=== PATIENT | female | born 1955 | race Caucasian/White ===

== ENCOUNTER 2019-01-09 18:12 | Observation (INO) | payer SELFPAY ==
[~2019-01-09] VITALS: Ht 154.9 cm; Wt 82.7 kg
[~2019-01-09 18:12] MED LIST: SULF500T3 PO
[2019-01-09 18:15] VITALS: BP 163/98
--- OUTSIDE RECORDS SUMMARY | 2019-01-09 18:18 | XMS REPORT | Continuity of Care Document ---
Author Organization Unknown Address Unknown Allergies Active Description Code Type Severity Reaction Onset Reported/Identified Relationship to Patient Clinical Status Yes cefazolin Drug Allergy N/A N/A 02/02/2013 Yes Bactrim DS 800-160 mg tablet Drug Allergy N/A N/A 05/13/2013 Yes Bactrim Drug Allergy N/A N/A 05/13/2013 Yes Cephalexin Drug Allergy N/A N/A 05/13/2013 Medications There is no data. 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 06/24/2012 578.1 black or tarry stools (melena) 06/24/2012 338.29 CHRONIC PAIN 06/24/2012 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 06/24/2012 578.1 black or tarry stools (melena) 06/24/2012 338.29 CHRONIC PAIN 06/24/2012 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 06/24/2012 578.1 black or tarry stools (melena) 06/24/2012 338.29 CHRONIC PAIN 06/24/2012 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 06/24/2012 578.1 black or tarry stools (melena) 06/24/2012 338.29 CHRONIC PAIN 06/24/2012 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 06/24/2012 578.1 black or tarry stools (melena) 06/24/2012 BERNADINE BENSON DO 338.29 CHRONIC PAIN 06/24/2012 BERNADINE BENSON DO 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 06/24/2012 BERNADINE BENSON DO 578.1 black or tarry stools (melena) 06/24/2012 RUDY AGUAYO APRN 338.29 CHRONIC PAIN 06/24/2012 RUDY AGUAYO APRN 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 06/24/2012 RUDY AGUAYO APRN 578.1 black or tarry stools (melena) 08/30/2012 786.2 cough 08/30/2012 786.2 cough 08/30/2012 786.2 cough 08/30/2012 786.2 cough 08/30/2012 786.2 cough 08/30/2012 786.2 cough 08/30/2012 BERNADINE BENSON DO 786.2 cough 08/30/2012 RUDY AGUAYO APRN 786.2 cough 09/11/2012 465.9 UPPER RESPIRATORY INFECTION 09/11/2012 465.9 UPPER RESPIRATORY INFECTION 09/11/2012 465.9 UPPER RESPIRATORY INFECTION 09/11/2012 465.9 UPPER RESPIRATORY INFECTION 09/11/2012 465.9 UPPER RESPIRATORY INFECTION 09/11/2012 BERNADINE BENSON DO 465.9 UPPER RESPIRATORY INFECTION 09/11/2012 RUDY AGUAYO APRN 465.9 UPPER RESPIRATORY INFECTION 03/03/2013 278.02 OVERWEIGHT 03/03/2013 BERNADINE BENSON DO 278.02 OVERWEIGHT 03/03/2013 RUDY AGUAYO APRN 278.02 OVERWEIGHT 05/13/2013 BERNADINE BENSON DO 709.9 SKIN LESIONS 05/13/2013 RUDY AGUAYO APRN 709.9 SKIN LESIONS Procedures Code Description [place] [address] ROUTINE VENIPUNCTURE 06/24/2012 07890 A1C (IN-HOUSE) 06/24/2012 36607 ESR/SED RATE 06/24/2012 08026 CBC 06/24/2012 29224 CMP 06/24/2012 37354 MAGNESIUM 06/24/2012 [id number] GFR CALC (RESULT ONLY) 06/24/2012 99355 CRP 06/25/2012 18597 TSH 06/25/2012 42078 RA FACTOR 06/25/2012 ANAANA LUIS ANALYZER (SCREEN) 06/25/2012 Eddie More 06/28/[address] ABDOMEN AND PELVIS W/CONTRAST 07/26/2012 68411 INFLUENZA A & B (IN-HOUSE) 08/30/2012 81886 ROUTINE VENIPUNCTURE 02/22/2014 [id number] GFR CALC (RESULT ONLY) 02/22/2014 03810 CMP 02/22/2014 01009 LIPID PANEL 02/22/2014 99609 CBC 02/22/2014 34218 TSH 02/22/2014 Results There is no data. Encounters ACCT No. Visit Date/Time Discharge Status Pt. Type Provider Facility Loc./Unit Complaint [id number] 02/22/2014 10:49:00 02/22/2014 23:59:59 CLS Outpatient RUDY AGUAYO APRN [id number] 05/13/2013 09:42:00 05/13/2013 23:59:59 CLS Outpatient BERNADINE BENSON DO [id number] 10/11/2012 15:54:00 10/11/2012 23:59:59 CLS Outpatient [id number] 09/11/2012 09:58:00 09/11/2012 23:59:59 CLS Outpatient [id number] 08/30/2012 13:11:00 08/30/2012 23:59:59 CLS Outpatient [id number] 06/24/2012 12:57:00 06/24/2012 23:59:59 CLS Outpatient BERNADINE BENSON DO [id number] 03/03/2013 10:57:00 Document Registration [id number] 02/02/2013 16:14:00 Document Registration [id number] 10/28/2012 05:41:00 Document Registration
--- OUTSIDE RECORDS SUMMARY | 2019-01-09 18:18 | XMS REPORT ---
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 06574203 Problem Acute upper respiratory infections of unspecified site 465.9 Active 81887218 ALLERGIES No Information ENCOUNTERS Encounter Location Date Diagnosis [facility] [address] [place] [address] Apr, [facility] [address] [place] [address] Mar, Sinusitis 473.9 and Cough 786.2 [facility] [address] [place] [address] Nov, [facility] [address] [address] Nov, [facility] [id number] [place] [address] Jun, [facility] [address] [place] [address] Jun, [facility] [id number] [place] [address] Feb, [facility] [address] [address] Feb, [facility] [id number] [place] [address] Feb, [facility] [address] [id number] [place] [address] Feb, [facility] [place] [facility] [address] [id number] [place] [address] Feb, [facility] [address] [id number] [place] [address] Feb, [facility] [place] [facility] [address] [id number] [place] [address] December, [facility] [address] [id number] [place] [address] December, [facility] [address] [id number] [place] [address] Jul, [facility] [address] [facility] [id number] [place] [address] Jul, [facility] [address] [id number] [place] [address] Apr, [facility] [address] [id number] [place] [address] Apr, [facility] [place] [facility] [address] [facility] [id number] [place] [address] Apr, [facility] [address] [id number] [place] [address] Feb, [facility] [place] [facility] [address] [id number], [place] [address] Jan, [facility] [place] [facility] [address] [id number] [place] [address] Jan, [facility] [place] [facility] [address] [facility] [id number] [place] [address] Sep, [facility] [place] [facility] [address] [facility] [id number], [place] [address] Aug, [facility] [place] [facility] [address] [facility] [id number], [place] [address] Aug, [facility] [address] [address] Aug, [facility] [address] [facility] [id number], [place] [address] Jul, [facility] [address] [facility] [id number], [place] [address] Jul, [facility] [address] [facility] [id number], [place] [address] Jun, [facility] [address] [place] [address] Jun, [facility] [address], [place] [address] Jun, [facility] [address], [place] [address] Jun, [facility] [address], [place] [address] Jun, [facility] [address], [place] [address] Jun, [facility] [address], [place] [address] Jun, [facility] [address], [place] [address] Jun, [facility] [id number] [address] Jun, IMMUNIZATIONS No Known Immunizations SOCIAL HISTORY Never Assessed [place] [place] VITAL SIGNS MEDICATIONS Unknown Medications RESULTS No Results PROCEDURES No Known procedures INSTRUCTIONS MEDICATIONS ADMINISTERED No Known Medications MEDICAL (GENERAL) HISTORY Type Description Date Surgical History tonsillectomy Surgical History colostomy
--- OUTSIDE RECORDS SUMMARY | 2019-01-09 18:18 | XMS REPORT ---
Author Author Migration, Doctor Organization 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 72264143 Problem Acute upper respiratory infections of unspecified site 465.9 Active 07249422 ALLERGIES No Information ENCOUNTERS Encounter Location Date Diagnosis [facility] [address] [place] [address] Apr, [facility] [address] [place] [address] Mar, Sinusitis 473.9 and Cough 786.2 [facility] [address] [place] [address] Nov, [facility] [address] [address] Nov, [facility] [id number] [place] [address] Jun, [facility] [address] [place] [address] Jun, [facility] [id number] [place] [address] Feb, [facility] [address] [address] Feb, [facility] [id number] [place] [address] Feb, [facility] [address] [id number] [place] [address] Feb, [facility] [place] [facility] [address] [id number] [place] [address] Feb, [facility] [address] [id number] [place] [address] Feb, [facility] [place] [facility] [address] [id number] [place] [address] December, [facility] [address] [id number] [place] [address] December, [facility] [address] [id number] [place] [address] Jul, [facility] [address] [facility] [id number] [place] [address] Jul, [facility] [address] [id number] [place] [address] Apr, [facility] [address] [id number] [place] [address] Apr, [facility] [place] [facility] [address] [facility] [id number] [place] [address] Apr, [facility] [address] [id number] [place] [address] Feb, [facility] [place] [facility] [address] [id number] [address] Jan, [facility] [place] [facility] [address] [id number] [place] [address] Jan, [facility] [place] [facility] [address] [facility] [id number] [place] [address] Sep, [facility] [place] [facility] [address] [facility] [id number] [place] [address] Aug, [facility] [place] [facility] [address] [facility] [id number] [place] [address] Aug, [facility] [address] [address] Aug, [facility] [address] [facility] [id number] [place] [address] Jul, [facility] [address] [facility] [id number] [place] [address] Jul, [facility] [address] [facility] [id number] [place] [address] Jun, [facility] [address] [place] [address] Jun, [facility] [address] [address] Jun, [facility] [address] [address] Jun, [facility] [address] [address] Jun, [facility] [address] [address] Jun, [facility] [address] [address] Jun, [facility] [address] [address] Jun, [facility] [id number] [address] Jun, IMMUNIZATIONS No Known Immunizations SOCIAL HISTORY Never Assessed REASON FOR VISIT [facility] [place] PLAN OF CARE VITAL SIGNS MEDICATIONS Unknown Medications RESULTS No Results PROCEDURES No Known procedures INSTRUCTIONS MEDICATIONS ADMINISTERED No Known Medications MEDICAL (GENERAL) HISTORY Type Description Date Surgical History tonsillectomy Surgical History colostomy
--- OUTSIDE RECORDS SUMMARY | 2019-01-09 18:18 | XMS REPORT ---
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
--- NOTE | 2019-01-09 18:34 | Diagnostic Imaging Report ---
PROCEDURE: CT head without contrast. TECHNIQUE: Multiple contiguous axial images were obtained through the brain without the use of intravenous contrast. Auto Exposure Controls were utilized during the CT exam to meet ALARA standards for radiation dose reduction. INDICATION: Slurred speech and facial droop. FINDINGS: The ventricles and sulci are within normal limits. There is no hydrocephalus or cerebral edema. There is no midline shift or mass effect. There is no intracranial mass, hemorrhage, or extra-axial fluid collection. The visualized paranasal sinuses and mastoid air cells are clear. There are no regional areas of decreased attenuation appreciated to suggest an acute CVA. IMPRESSION: No acute intracranial abnormality. Dictated by: Dictated on workstation # [id number]
[2019-01-09 18:38] LABS: BASOPHILS % (AUTO) 1 % (0-10); EOSINOPHILS % (AUTO) 2 % (0-10); HEMATOCRIT 41 % (35-52); HEMOGLOBIN 13.6 G/DL (11.5-16.0); LYMPHOCYTES % (AUTO) 42 % (12-44); MEAN CORPUSCULAR HEMOGLOBIN 30 PG (25-34); MEAN CORPUSCULAR HGB CONC 34 G/DL (32-36); MEAN CORPUSCULAR VOLUME 90 FL (80-99); MEAN PLATELET VOLUME 9.2 FL (7.4-10.4); MONOCYTES % (AUTO) 6 % (0-12); NEUTROPHILS % (AUTO) 50 % (42-75); PLATELET COUNT 254 10^3/uL (130-400); RED CELL DISTRIBUTION WIDTH 12.2 % (10.0-14.5); WHITE BLOOD COUNT 7.6 10^3/uL (4.3-11.0)
[2019-01-09 18:39] LABS: EOSINOPHILS # (AUTO) 0.1 10^3/uL (0.0-0.3); LYMPHOCYTES # (AUTO) 3.2 X 10^3 (1.0-4.0); MONOCYTES # (AUTO) 0.4 X 10^3 (0.0-1.0); NEUTROPHILS # (AUTO) 3.8 X 10^3 (1.8-7.8)
--- NOTE | 2019-01-09 18:43 | Diagnostic Imaging Report ---
INDICATION: Slurred speech and facial droop. COMPARISON: No prior examination is available for comparison. EXAMINATION: Single view of the chest was obtained. FINDINGS: The heart size, mediastinal configuration, and pulmonary vascularity are within normal limits. There is no pleural effusion, pneumothorax, or pneumonia. The osseous structures are unremarkable. IMPRESSION: No acute cardiopulmonary abnormality. Dictated by: Dictated on workstation # [id number]
[2019-01-09 18:44] LABS: PROTHROMBIN TIME PATIENT 13.4 SEC (12.2-14.7)
--- NOTE | 2019-01-09 18:51 | ED Neurological Problem ---
General Chief Complaint: Neuro-Stroke Like Symptoms Stated Complaint: POSS STROKE Source: patient, family History of Present Illness Date Seen by Provider: January 09, 2019 Time Seen by Provider: 18:35 This is a 63-year-old female here with her granddaughter for right-sided facial weakness, slurred speech, left arm weakness, onset upon waking from a nap at about 10:30 AM this morning. She had gone to sleep at 9:30 AM feeling approximately at her baseline. She's never had a stroke or heart attack. She says that she takes no medications on a regular basis. 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 Asked about any pain she admits to some right shoulder pain earlier in the day, she noticed it somewhat when lying down for CT scan as well, but states it has resolved and was not a reason for her visit today. Allergies and Home Medications Allergies Coded Allergies: cephalexin (Verified Allergy, Unknown, 01/09/19) sulfamethoxazole (Verified Allergy, Unknown, 01/09/19) trimethoprim (Verified Allergy, Unknown, 01/09/19) Home Medications Sulfasalazine 500 Mg Tablet.dr, 500 MG PO QID, (Reported) Patient Home Medication List Home Medication List Reviewed: Yes Review of Systems Review of Systems Constitutional: no symptoms reported Eyes: No Symptoms Reported Ears, Nose, Mouth, Throat: no symptoms reported Respiratory: no symptoms reported Cardiovascular: no symptoms reported Gastrointestinal: no symptoms reported Genitourinary: no symptoms reported Musculoskeletal: no symptoms reported Skin: no symptoms reported Psychiatric/Neurological: See HPI Endocrine: No Symptoms Reported Hematologic/Lymphatic: No Symptoms Reported Past Liybvvj-Utwcuk-Iubkjf Hx Past Med/Social Hx: Reviewed Nursing Past Med/Soc Hx Physical Exam Vital Signs Vital Signs - First Documented 01/09/19 01/09/19 18:15 18:52 Temp 98.3 Pulse 83 Resp 25 B/P (MAP) 163/98 Pulse Ox 98 O2 Delivery Room Air Capillary Refill : Height, Weight, BMI Height: '" Weight: lbs. oz. kg; BMI Method: General Appearance: no apparent distress (awake but appears mildly drowsy) HEENT: PERRL/EOMI Neck: supple; No carotid bruit Respiratory: lungs clear Cardiovascular: normal peripheral pulses, regular rate, rhythm Gastrointestinal: non tender, soft, other (left lower quadrant ostomy in place with brown stool in the bag) Back: other (mild tenderness with hypertonic musculature in the right trapezius ridge) Neurologic/Psychiatric: other (there is right upper and lower facial weakness. Cranial nerves are otherwise intact. Mild weakness in the left arm noted on finger to nose testing however there is no drift. No drift in the lower extremities. Sensation to light touch is intact symmetrically. All 4 visual quadrants are intact. There is mild dysarthria.) Crainal Nerves: normal hearing; No normal speech; PERRL; No abnormal eye position, No abnormal gag reflex, No tongue deviation to R, No tongue deviation to L Coordination/Gait: normal finger to nose Skin: warm/dry Stroke NIH Stroke Scale Assessment Select: Post CT Level of Consciousness: 0=Alert (0), Level of Consciousness- Questions: 0=Answers both month/age (0), LOC Commands: 0=Performs both tasks (0), Gaze: Normal (0), Visual Guillen: 0=No visual loss (0), Facial Movement (Facial Paresis): 2=Partial paralysis (2), Motor Function-Arms Right: 0=No drift (0), Motor Function-Arms Left: 0=No drift (0), Motor Function-Legs Right: 0=No drift (0), Motor Function-Legs Left: 0=No drift (0), Limb Ataxia: 0=Absent (0), Sensory: 0=Normal:no loss (0), Best Language: 0=No aphasia (0), Dysarthria: 1=Mild to moderate loss (1), Extinction & Inattention: 0=No abnormality (0), Total: 3 Progress/Results/Core Measures Results/Orders Lab Results Laboratory Tests Test 01/09/19 18:15 01/09/19 18:56 01/09/19 19:37 Range/Units White Blood Count 7.6 4.3-11.0 10^3/uL Red Blood Count 4.52 4.35-5.85 10^6/uL Hemoglobin 13.6 11.5-16.0 G/DL Hematocrit 41 35-52 % Mean Corpuscular Volume 90 80-99 FL Mean Corpuscular Hemoglobin 30 25-34 PG Mean Corpuscular Hemoglobin Concent 34 32-36 G/DL Red Cell Distribution Width 12.2 10.0-14.5 % Platelet Count 254 130-400 10^3/uL Mean Platelet Volume 9.2 7.4-10.4 FL Neutrophils (%) (Auto) 50 42-75 % Lymphocytes (%) (Auto) 42 12-44 % Monocytes (%) (Auto) 6 0-12 % Eosinophils (%) (Auto) 2 0-10 % Basophils (%) (Auto) 1 0-10 % Neutrophils # (Auto) 3.8 1.8-7.8 X 10^3 Lymphocytes # (Auto) 3.2 1.0-4.0 X 10^3 Monocytes # (Auto) 0.4 0.0-1.0 X 10^3 Eosinophils # (Auto) 0.1 0.0-0.3 10^3/uL Basophils # (Auto) 0.0 0.0-0.1 10^3/uL Prothrombin Time 13.4 12.2-14.7 SEC INR Comment 1.0 0.8-1.4 Activated Partial Thromboplast Time 31 24-35 SEC Sodium Level 141 135-145 MMOL/L Potassium Level 3.8 3.6-5.0 MMOL/L Chloride Level 104 98-107 MMOL/L Carbon Dioxide Level 24 21-32 MMOL/L Anion Gap 13 5-14 MMOL/L Blood Urea Nitrogen 13 7-18 MG/DL Creatinine 0.78 0.60-1.30 MG/DL Estimat Glomerular Filtration Rate > 60 BUN/Creatinine Ratio 17 Glucose Level 104 70-105 MG/DL Calcium Level 10.6 H 8.5-10.1 MG/DL Corrected Calcium 10.3 H 8.5-10.1 MG/DL Total Bilirubin 0.5 0.1-1.0 MG/DL Aspartate Amino Transf (AST/SGOT) 21 5-34 U/L Alanine Aminotransferase (ALT/SGPT) 19 0-55 U/L Alkaline Phosphatase 90 40-136 U/L Total Protein 7.5 6.4-8.2 GM/DL Albumin 4.4 3.2-4.5 GM/DL Glucometer 102 70-110 MG/DL Urine Color YELLOW Urine Clarity CLOUDY Urine pH 5.5 5-9 Urine Specific [place] 1.025 H 1.016-1.022 Urine Protein NEGATIVE NEGATIVE Urine Glucose (UA) NEGATIVE NEGATIVE Urine Ketones 1+ H NEGATIVE Urine Nitrite NEGATIVE NEGATIVE Urine Bilirubin NEHG NEGATIVE Urine Urobilinogen 0.2 NORMAL MG/DL Urine Leukocyte Esterase 2+ H NEGATIVE Urine RBC (Auto) 2+ H NEGATIVE Urine RBC 5-10 H /HPF Urine WBC >100 H /HPF Urine Squamous Epithelial Cells 5-10 /HPF Urine Renal Epithelial Cells 0-2 /HPF Urine Crystals NONE /LPF Urine Bacteria NEGATIVE /HPF Urine Casts PRESENT /LPF Urine Hyaline Casts 2-5 H /LPF Urine Mucus LARGE H /LPF Urine Culture Indicated YES My Orders Orders - IVANA MARTE DO Ct Head Wo (01/09/19 18:17) Cbc With Automated Diff (01/09/19 18:24) Protime With Inr (01/09/19 18:24) Partial Thromboplastin Time (01/09/19 18:24) Comprehensive Metabolic Panel (01/09/19 18:24) Ua Culture If Indicated (01/09/19 18:24) Chest 1 View Ap/Pa Only (01/09/19 18:24) Ekg Tracing (01/09/19 18:24) Nothing By Mouth (01/10/19 Breakfast) Accucheck Stat ONCE (01/09/19 18:24) Ed Iv/Invasive Line Start (01/09/19 18:24) Ed Iv/Invasive Line Start (01/09/19 18:24) Vital Signs Stroke Patient Q15M (01/09/19 18:24) O2 (01/09/19 18:24) Intake & Output 06,14,22 (01/09/19 18:24) Monitor-Rhythm Ecg Trace Only (01/09/19 18:24) Dysphagia Screening Tool (01/09/19 18:24) Aspirin Chewable Tablet (Baby Aspirin Ch (01/09/19 19:00) Urine Culture (01/09/19 19:37) Medications Given in ED Current Medications Medications Dose Ordered Sig/Umberto Route Start Time Stop Time Status Last Admin Dose Admin Aspirin 324 mg ONCE ONCE PO 01/09/19 19:00 01/09/19 19:01 DC 01/09/19 19:10 324 MG Vital Signs/I&O 01/09/19 01/09/19 01/09/19 18:15 18:52 19:54 Temp 98.3 99.1 Pulse 83 83 78 Resp 25 25 22 B/P (MAP) 163/98 163/98 (119) 129/82 (98) Pulse Ox 98 98 97 O2 Delivery Room Air Room Air Progress Progress Note : Progress Note Patient presents with right facial weakness and left arm weakness, last known no rmal at 9:30 AM, not a TPA candidate. The right facial weakness may be secondary to her history of Beltran palsy, with a stroke possibly causing the left arm weakness however the arm weakness is only noted when she is lifting her arm up her finger to nose testing, there is no drift when she has both of her arms up. She is slightly drowsy, considering the differential for altered mental status stroke is obviously a consideration as is acute coronary syndrome, infection such as urinary tract infection or pneumonia, electrolyte abnormality, medication effect, intoxication, trauma, seizure/postictal paralysis. She did note some right trapezius pain/tenderness on ROS but this is reproducible on palpation and has actually resolved, no carotid bruit, no hx or evidence of trauma, very unlikely her symptoms are related to a cervical arterial dissection or meningitis. We will give aspirin if head CT is read as negative for hemorrhage. We will check labs, urinalysis, chest x-ray. ECG only has nonspecific T-wave changes in several leads. We will admit for further monitoring and care. EKG : Comment 1842: Sinus rhythm rate of 73. T-wave inversion in 3, nonspecific T-wave flattening in aVF, V2 and V3. Departure Impression Primary Impression: Left arm weakness Additional Impressions: Weakness on right side of face Drowsiness Disposition: ADMITTED INPATIENT Condition: Stable Transfer Time Spoke to Accepting Phy: 19:[address] Paredes at [facility] Method of Transfer: EMS IVANA MARTE DO January 09, 2019 18:51
[2019-01-09 18:56] LABS: CHLORIDE 104 MMOL/L (98-107); POTASSIUM 3.8 MMOL/L (3.6-5.0); SODIUM 141 MMOL/L (135-145)
[2019-01-09 18:57] LABS: BUN/CREATININE RATIO 17; CARBON DIOXIDE 24 MMOL/L (21-32); CREATININE SERUM 0.78 MG/DL (0.60-1.30); GFR ESTIMATED > 60
[2019-01-09 18:58] LABS: ALKALINE PHOSPHATASE 90 U/L (40-136); BILIRUBIN,TOTAL 0.5 MG/DL (0.1-1.0); CALCIUM 10.6 MG/DL (8.5-10.1); GLUCOSE 104 MG/DL (70-105)
[2019-01-09 18:59] LABS: ALANINE AMINOTRANSFERASE 19 U/L (0-55); ALBUMIN 4.4 GM/DL (3.2-4.5); TOTAL PROTEIN 7.5 GM/DL (6.4-8.2)
[2019-01-09] MEDS ORDERED: ASPIRIN 81 MG CHEW (CHILDREN'S ASA) PO ONE (19:00)
--- NOTE | 2019-01-09 19:22 | NUR ---
Pt signed patient consent to "medically indicated" transfer form
[2019-01-09 19:54] VITALS: BP 129/82
[2019-01-09 19:54] LABS: BILIRUBIN,URINE NEHG (NEGATIVE); CLARITY,URINE CLOUDY; COLOR,URINE YELLOW; GLUCOSE, URINE (UA) NEGATIVE (NEGATIVE); KETONES,URINE 1+ (NEGATIVE); LEUKOCYTE ESTERASE ,URINE 2+ (NEGATIVE); NITRITE,URINE NEGATIVE (NEGATIVE); PH,URINE 5.5 (5-9); PROTEIN,URINE NEGATIVE (NEGATIVE); UROBILINOGEN,URINE 0.2 MG/DL (NORMAL)
[2019-01-09 20:02] LABS: BACTERIA,URINE NEGATIVE /HPF; RENAL EPITHELIAL CELLS,URINE 0-2 /HPF; WBC,URINE >100 /HPF
--- NOTE | 2019-01-09 20:25 | NUR ---
Report was given to ANGÉLICA Kaur at this time. Care was tranferred.
--- NOTE | 2019-01-09 20:30 | NUR ---
EMS left with patient at this time. In route to [place] [facility].
--- NOTE | 2019-01-09 20:41 | NUR ---
REPORT FROM SAE METCALF FROM [facility] AT THIS TIME. THIS RN WILL ASSUME CARE OF THIS PATIENT WHEN SHE ARRIVES TO THIS FLOOR VIA [facility].
--- OUTSIDE RECORDS SUMMARY | 2019-01-09 20:56 | XMS REPORT | Continuity of Care Document ---
[...] Procedures Code Description [place] [address] ROUTINE VENIPUNCTURE 06/24/2012 89354 A1C (IN-HOUSE) 06/24/2012 71372 ESR/SED RATE 06/24/2012 67346 CBC 06/24/2012 17732 CMP 06/24/2012 56819 MAGNESIUM 06/24/2012 [id number] GFR CALC (RESULT ONLY) 06/24/2012 87743 CRP 06/25/2012 41655 TSH 06/25/2012 81846 RA FACTOR 06/25/2012 ANAANA LUIS ANALYZER (SCREEN) 06/25/2012 Eddie More 06/28/[address] ABDOMEN AND PELVIS W/CONTRAST 07/26/2012 03024 INFLUENZA A & B (IN-HOUSE) 08/30/2012 03179 ROUTINE VENIPUNCTURE 02/22/2014 [id number] GFR CALC (RESULT ONLY) 02/22/2014 05665 CMP 02/22/2014 01781 LIPID PANEL 02/22/2014 18506 CBC 02/22/2014 62530 TSH 02/22/2014 Results There is no data. Encounters ACCT No. Visit Date/Time Discharge Status Pt. Type Provider Facility Loc./Unit Complaint [id number] 02/22/2014 10:49:00 02/22/2014 23:59:59 CLS Outpatient RUDY AGUAYO APRN [id number] 05/13/2013 09:42:00 05/13/2013 23:59:59 CLS Outpatient BERNADINE BENSON DO [id number] 10/11/2012 15:54:00 10/11/2012 23:59:59 CLS Outpatient [id number] 09/11/2012 09:58:00 09/11/2012 23:59:59 CLS Outpatient [id number] 08/30/2012 13:11:00 08/30/2012 23:59:59 CLS Outpatient [id number] 06/24/2012 12:57:00 06/24/2012 23:59:59 CLS Outpatient BERNADINE BENSON DO [id number] 03/03/2013 10:57:00 Document Registration [id number] 02/02/2013 16:14:00 Document Registration [id number] 10/28/2012 05:41:00 Document Registration
[2019-01-09 21:23] VITALS: BP 160/77
[2019-01-09 21:24] VITALS: BP 160/77
[2019-01-09] MEDS ORDERED: NS IV 1000 ML 1,000 ML IV SCH (21:30)
[2019-01-09] MEDS: 1/2 NS IV SOLUTION 1,000 ML IV SCH (22:15)
[2019-01-09] MEDS ORDERED: ACETAMINOPHEN 325 MG TABLET PO PRN (22:45)
[2019-01-09 23:23] VITALS: BP 134/76
[2019-01-10 03:30] LABS: BASOPHILS % (AUTO) 0 % (0-10); EOSINOPHILS # (AUTO) 0.1 10^3/uL (0.0-0.3); EOSINOPHILS % (AUTO) 2 % (0-10); HEMATOCRIT 37 % (35-52); HEMOGLOBIN 12.3 G/DL (11.5-16.0); LYMPHOCYTES # (AUTO) 2.4 X 10^3 (1.0-4.0); LYMPHOCYTES % (AUTO) 41 % (12-44); MEAN CORPUSCULAR HEMOGLOBIN 30 PG (25-34); MEAN CORPUSCULAR HGB CONC 34 G/DL (32-36); MEAN CORPUSCULAR VOLUME 89 FL (80-99); MEAN PLATELET VOLUME 9.3 FL (7.4-10.4); MONOCYTES # (AUTO) 0.4 X 10^3 (0.0-1.0); MONOCYTES % (AUTO) 7 % (0-12); NEUTROPHILS % (AUTO) 50 % (42-75); PLATELET COUNT 207 10^3/uL (130-400); RED CELL DISTRIBUTION WIDTH 12.3 % (10.0-14.5); WHITE BLOOD COUNT 5.9 10^3/uL (4.3-11.0)
[2019-01-10 03:49] LABS: ALANINE AMINOTRANSFERASE 19 U/L (0-55); ALBUMIN 3.6 GM/DL (3.2-4.5); ALKALINE PHOSPHATASE 76 U/L (40-136); BILIRUBIN,TOTAL 0.4 MG/DL (0.1-1.0); BUN/CREATININE RATIO 14; CALCIUM 9.4 MG/DL (8.5-10.1); CARBON DIOXIDE 22 MMOL/L (21-32); CHLORIDE 107 MMOL/L (98-107); CHOLESTEROL 217 MG/DL (< 200); GFR ESTIMATED > 60; GLUCOSE 85 MG/DL (70-105); HDL CHOLESTEROL 44 MG/DL (40-60); POTASSIUM 3.5 MMOL/L (3.6-5.0); SODIUM 140 MMOL/L (135-145); TOTAL PROTEIN 6.3 GM/DL (6.4-8.2); TRIGLYCERIDES 126 MG/DL (<150); VLDL CHOLESTEROL 25 MG/DL (5-40)
[2019-01-10 03:52] VITALS: BP 128/75
[2019-01-10] MEDS: 1/2 NS IV SOLUTION 1,000 ML IV SCH (04:53)
[2019-01-10] MEDS ORDERED: CATHETER FLUSH 10 ML SYR IV PRN (07:45)
[2019-01-10 08:00] VITALS: BP 148/68
[2019-01-10 12:00] VITALS: BP 145/70
--- NOTE | 2019-01-10 13:09 | Diagnostic Imaging Report ---
PROCEDURE: MR angiography of the brain without the use of contrast. TECHNIQUE: 3D [id number] non contrast enhanced MR angiography of the head was performed. A source data was reformatted into rotating MIP projections. INDICATION: Stroke. COMPARISON: MRI brain without contrast 01/10/2019. CT head without contrast 01/09/2019. FINDINGS: The basilar, intracranial internal carotid, vertebral, anterior cerebral, middle cerebral and posterior cerebral arteries are widely patent without evidence of aneurysm. The anterior and left posterior communicating artery are patent. IMPRESSION: No high-grade narrowing or aneurysm involving the major intracranial arteries. Dictated by: Dictated on workstation # [id number]
--- NOTE | 2019-01-10 13:11 | Diagnostic Imaging Report ---
PROCEDURE: MR imaging of the brain without contrast. TECHNIQUE: Multiplanar, multisequence MR imaging of the brain was performed without contrast. INDICATION: Slurred speech. Right facial numbness. Difficulty walking. COMPARISON: CT head without contrast 01/09/2019. FINDINGS: There is a small region of restricted water diffusion in the left lentiform nucleus including the caudate tail. This measures up 1.3 cm. Mild additional nonspecific T2 hyperintensities in the supratentorial white matter. No hemosiderin deposition. Normal morphology including the major midline structures, sella, posterior fossa and cerebellar pontine angle. No hydrocephalus or extra-axial fluid collections. Normal intracranial flow voids. The orbits are unremarkable. The paranasal sinuses and mastoids are clear. Normal bone marrow signal. IMPRESSION: Small acute to subacute infarct in the right basal ganglia. MRI of the brain is otherwise age-appropriate. Dictated by: Dictated on workstation # [id number]
--- NOTE | 2019-01-10 13:33 | Physical Therapy Evaluation ---
PT Evaluation-General Medical Diagnosis Admission Date January 09, 2019 at 20:20 Medical Diagnosis: left arm weakness Onset Date: January 09, 2019 Therapy Diagnosis Therapy Diagnosis: impaired mobility, strength, endurance Height/Weight Height (Feet): 5 Height (Inches): 1.00 Weight (Pounds): 182 Weight (Ounces): 6.0 Precautions Precautions/Isolations: Standard Precautions Weight Bear Status Right Lower Extremity: Right Weight Bearing/Tolerated Left Lower Extremity: Left Weight Bearing/Tolerated Referral Physician: Cheryl Paredes MD Reason for Referral: Evaluation/Treatment Medical History Additional Medical History colostomy, Crohn's Reviewed History: Yes Social History Home: Single Level Current Living Status: Children Entry Into Home: Ramp Other family member states she will be there to help if needed. Prior/Core FIM Prior Level of Function Therapy Code Descriptions/Definitions Functional [place] Measure: 0=Not Assessed/NA 4=Minimal Assistance 1=Total Assistance 5=Supervision or Setup 2=Maximal Assistance 6=Modified [place] 3=Moderate Assistance 7=Complete [place] Therapy Quality Codes: 6 Independent with activity with or without an assistive device 5 Patient requires set up or clean up by helper. Patient completes activity by themselves 4 Supervision or touching assist (CGA). [place] provide cues , steadying assist 3 The helper provides less than half the effort to complete the activity 2 The helper provides more than half the effort to complete the activity 1 Dependent. The helper does all the effort to complete an activity 7 Patient refused to complete or attempt activity 9 The patient did not perform the activity before the current illness or injury 88 Not attempted due to Medical conditions or safety concerns Functional Abilities and Goals: Independent: Patient completed the activities by him/herself, with or without an assistive device, with no assistance from a helper. Needed Some Help: Patient needed partial assistance from another person to complete activities. Dependent: A helper completed the activities for the patient. Unknown: Not Applicable: Bed Mobility: 7 Transfers (B,C,W/C) (FIM): 7 Gait: 7 Stairs: 7 Indoor Mobility (Ambulation): Independent Stairs: Independent PT Evaluation-Current Subjective Patient in bed pre tx, agrees to PT, has no complaints of pain. Pt/Family Goals to be independent at home Objective Patient Orientation: Person, Place, Situation ROM/Strength ROM Lower Extremities WNL Strength Lower Extremities 5/5 LLE, 4/5 RLE Neuromuscular (Tone, Coordination, Reflexes) tested good peripheral vision and tracking Sensory Vision: Wears Glasses Hearing: Functional Sensation Right Lower Extremit: Intact Sensation Left Lower Extremity: Intact Transfers Therapy Code Descriptions/Definitions Functional [place] Measure: 0=Not Assessed/NA 4=Minimal Assistance 1=Total Assistance 5=Supervision or Setup 2=Maximal Assistance 6=Modified [place] 3=Moderate Assistance 7=Complete [place] Transfers (B, C, W/C) (FIM): 7 Scootin Rollin Supine to/from Sit: 7 Sit to/from Stand: 7 Gait Mode of Locomotion: Walk Anticipated Mode of Locomotion: Walk Gait (FIM): 5 Distance: 350' Gait Level of Assist: 5 Gait Persons Needed: 1 Gait Assistive Device: None Comments/Gait Description Brisk ambulation, no LOB or unsteadiness but she tends to hug the wall on the right side. Balance Sitting Static: Normal Sitting Dynamic: Normal Standing Static: Normal Standing Dynamic: Good Treatment seated LE exercises x15 (AP, LAQ) Assessment/Needs Patient has impaired mobility, strength, endurance. She has safe transfers and bed mobility and good balance during ambulation but tends to hug the wall on the right side. Rehab Potential: Fair PT Short Term Goals Short Term Goals Time Frame: January 17, 2019 Transfers (B,C,W/C) (FIM): 7 Gait (FIM): 7 Gait Distance Comment: 400' Gait Assistive Device: None PT Plan Problem List Problem List: Activity Tolerance, Functional Strength, Safety, Balance, Gait, Transfer Treatment/Plan Treatment Plan: Continue Plan of Care Treatment Plan: Education, Functional Activity [place], Functional Strength, Gait, Safety, Therapeutic Exercise Treatment Duration: January 17, 2019 Frequency: 6 times per week Estimated Hrs Per Day: .25 hour per day (15-30') Patient and/or Family Agrees t: Yes Safety Risks/Education Patient Education: Gait Training, Transfer Techniques, Correct Positioning, Safety Issues Teaching Recipient: Patient Teaching Methods: Demonstration, Discussion Response to Teaching: Reinforcement Needed Discharge Recommendations Plan Patient will perform bed mobility and transfer training, balance and endurance training, functional strengthening, stair training, gait training, and education, to improve functional mobility and independence at home. Therapy D/C Recommendations: Home w/ Family Support Time/GCodes Time In: 1313 Time Out: 1325 Total Billed Treatment Time: 12 Total Billed Treatment 1 visit EVL 12' MAKI DOMINGUEZ PT January 10, 2019 13:32
--- NOTE | 2019-01-10 13:58 | ST Dysphagia Evaluation ---
Speech Evaluation-General Medical Diagnosis left arm weakness Onset Date: January 09, 2019 Therapy Diagnosis Therapy Diagnosis: Oropharyngeal Dysphgia Precautions Precautions: Aspiration Precautions/Isolations: Standard Precautions Referral Referring Physician: Dr. Paredes Medical History Reviewed History: Yes Social History Current Living Status: Children Speech PLF/Current-Dysphagia Prior Level of Function The patient lives with her children. She was independent for her daily needs p rior to this hospitalization. Subjective The patient was pleasant and cooperative with the Bedside Dysphagia Evaluation. Cognitive Status Patient Orientation: Person, Place, Time, Eyes Open, Situation The patient is oriented to all concepts. 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 Voice Voice Phonatory-Based Quality: Normal Voice Pitch: Normal Voice Loudness: Normal Face Facial Symmetry: Asymmetrical Slight right side droop. Oral-Facial Assessment Oral-Facial Dentition: Normal Labial Seal Description: Droops Right Smile: Droops Right Puff Cheeks: Normal Lingual Protrusion: Normal Lingual ROM: Normal Lingual Strength: Normal Pharynx Velopharyngeal Move.: Normal Volitional Dry Swallow: Yes Voluntary Cough: Yes Can Clear Throat Volitionally: Yes Dysphagia Evaluation Consistencies Presented: Regular, Thin Liquid, Mechanical Soft, Pureed Oral phase is within normal limits for all consistencies. Pharyngeal phase is within normal limits with all consistencies. Dietary Recommendations: Regular Liquid Recommendations: Thin Swallowing Precautions: Alternate Liquids/Solids, Decreased Rate of Oral Intake, Liquids from Straw, Small Bites and Sips, Sitting Upright 90 Degrees, Sitting 90 Degrees 30 Post Intake Dysphagia Evaluation Summary The patient is a pleasant 63 year old female who was brought to the ED yesterday due to stroke like symptoms. The patient exhibits some right side facial droop, however it is slight. She states she had Belles Palsy as a child. The Bedside Dysphagia Evaluation was completed with presentations of thin liquids, puree, mechanical soft and regular food textures without difficulty noted with any consistency. Patient does not exhibit pocketing or oral residue with any consistency. The patient will be on a regular diet level with compensatory strategies in place. Barriers to Learning None identified. Speech-Plan Patient/Family Goals Patient/Family Goals: The patient will return home with her family upon hospital discharge. Treatment Plan Speech Therapy Treatment Plan: Discontinue ST The patient will be on a regular consistency diet. Treatment Duration: January 10, 2019 Frequency: 1 time per week Estimated Hrs Per Day: .25 hour per day Rehab Potential: Fair Barriers to Learning: None identified Pt/Family Agrees to Plan: Yes Safety Risks/Education Teaching Recipient: Patient Teaching Methods: Discussion Response to Teaching: Verbalize Understanding Education Topics Provided: Safety of oral intake Time Speech Therapy Time In: 08:30 Speech Therapy Time Out: 08:45 Total Billed Time: 15 Billed Treatment Time 1PARAMJIT [address]ETH[address] ST January 10, 2019 13:58
--- NOTE | 2019-01-10 15:07 | NUR ---
pt is a member of [facility]. She welcomed prayer and and expressed appreciation for rn cardiac's visit.
--- NOTE | 2019-01-10 15:19 | Diagnostic Imaging Report ---
PROCEDURE: MR angiography neck without contrast. TECHNIQUE: Non contrast enhanced MR angiography of the neck was performed. Source data was reformatted into rotating MIP projections. INDICATION: Stroke. COMPARISON: MR and MRA brain also performed today. FINDINGS: Conventional aortic arch. The bilateral common carotid, internal carotid and cervical vertebral arteries are widely patent without evidence of aneurysm. The visualized [place] is normal. IMPRESSION: No high-grade arterial narrowing or aneurysm involving the major arteries in the neck. Dictated by: Dictated on workstation # [id number]
--- NOTE | 2019-01-10 15:45 | History & Physical-Hospitalist ---
History of Present Illness HPI/Chief Complaint The patient is a 63-year-old white female who was taken by her family to the [facility] emergency room. She apparently had taken a nap at about 09 30 yesterday morning. Taken a nap at approximately 09 30 yesterday morning. When she awakened at about 1030 she noted some slurring of speech and weakness in her left arm. She also thought that her right face drooped more than usual. She had a bout of Beltran's palsy that about 9 years of age. This did not resolve completely. In early adulthood she had another bout. The slurring of speech improved but the left arm remains somewhat weak. 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 She was referred here for further evaluation and potential treatment. She was out side the window for any consideration of TPA. Date Seen 01/10/19 Time Seen by a Provider: 15:38 Attending Physician Cheryl Paredes MD PCP Referring Physician Date of Admission January 09, 2019 at 20:20 Home Medications & Allergies Home Medications Reviewed patient Home Medication Reconciliation performed by pharmacy medication reconciliations soldering technician and/or nursing. Patients Allergies have been reviewed. Allergies Allergies Coded Allergies cephalexin (Verified Allergy, Unknown, 01/10/19) sulfamethoxazole (Verified Allergy, Unknown, 01/10/19) trimethoprim (Verified Allergy, Unknown, 01/10/19) Past Fnbngzz-Bfftxo-Brmehn Hx Past Med/Social Hx: Reviewed Nursing Past Med/Soc Hx Patient Social History Alcohol Use: Denies Use Recreational Drug Use: No Smoking Status: Never a Smoker 2nd Hand Smoke Exposure: No Recent Foreign Travel: No Contact w/other who traveled: No Recent Hopitalizations: No Recent Infectious Disease Expo: No Seasonal Allergies Seasonal Allergies: No Past Medical History Surgeries: Tonsillectomy : No Gastrointestinal: Crohns Disease Family History Patient reports no known family medical history. Review of Systems Constitutional: see HPI EENTM: no symptoms reported Respiratory: no symptoms reported Gastrointestinal: no symptoms reported Musculoskeletal: muscle weakness (left upper extremity) Skin: no symptoms reported Psychiatric/Neurological: Numbness (right face), Weakness Physical Exam Physical Exam Vital Signs Vital Signs - First Documented 01/09/19 01/09/19 18:15 18:52 Temp 98.3 Pulse 83 Resp 25 B/P (MAP) 163/98 Pulse Ox 98 O2 Delivery Room Air Capillary Refill : Less Than 3 Seconds Height, Weight, BMI Height: 5'1.00" Weight: 182lbs. 6.0oz. 82.229353tu; 34.5 BMI Method:Stated General Appearance: No Apparent Distress, Other (there appeared to be minor asymmetry to the right face.) Eyes: Bilateral Eye Normal Inspection HEENT: Normal ENT Inspection Neck: Full Range of Motion, Normal Inspection, Non Tender Respiratory: Chest Non Tender, Lungs Clear, Normal Breath Sounds, No Accessory Muscle Use, No Respiratory Distress Gastrointestinal: Normal Bowel Sounds, No Organomegaly, No Pulsatile Mass, Non Tender, Soft Neurologic/Psychiatric: Alert, Oriented x3 Skin: Normal Color, Warm/Dry Lymphatic: No Adenopathy Comments The patient had a mild effacement of the nasolabial fold on the right. In addition her smile was crooked on the right. She was also unable to furrow her brow. 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 The left biceps appeared to be 2+ and comparable to the right. Alternating finger to thumb movements were equal bilaterally. She was able to straight leg lift equally bilaterally and dorsiflexion and plantar flexion appeared normal as well. Results Results/Procedures Labs Laboratory Tests 01/09/19 18:15 01/10/19 03:24 Patient resulted labs reviewed. Assessment/Plan Admission Diagnosis 1.left upper extremity weakness consider CVA. 2.past history of right Beltran's palsy 2. Admission Status: Observation Clinical Quality Measures DVT/VTE Risk/Contraindication: Risk Factor Score Per Nursin RFS Level Per Nursing on Admit: 4+=Very High TANA SALVADOR MD January 10, 2019 15:45
[2019-01-10 16:00] VITALS: BP 139/73
[2019-01-10 18:00] VITALS: BP 163/98
[2019-01-10 20:00] VITALS: BP 116/69
[2019-01-11] VITALS: BP 111/54
[2019-01-11 04:57] VITALS: BP 143/65
[2019-01-11 08:00] VITALS: BP 118/58
--- NOTE | 2019-01-11 10:50 | Physical Therapy Daily Note ---
PT Daily Note-Current Subjective Patient in recliner pre tx, agrees to PT, no complaints of pain. Patient hopes to DC home today. Appearance Patient in recliner post tx with nurse call, phone, tray, all needs met. Mental Status Patient Orientation: Person, Place, Situation Transfers Therapy Code Descriptions/Definitions Functional Garland Measure: 0=Not Assessed/NA 4=Minimal Assistance 1=Total Assistance 5=Supervision or Setup 2=Maximal Assistance 6=Modified Garland 3=Moderate Assistance 7=Complete Garland Therapy Quality Codes: 6 Independent with activity with or without an assistive device 5 Patient requires set up or clean up by helper. Patient completes activity by themselves 4 Supervision or touching assist (CGA). Zalma provide cues , steadying assist 3 The helper provides less than half the effort to complete the activity 2 The helper provides more than half the effort to complete the activity 1 Dependent. The helper does all the effort to complete an activity 7 Patient refused to complete or attempt activity 9 The patient did not perform the activity before the current illness or injury 88 Not attempted due to Medical conditions or safety concerns Transfers (B, C, W/C) (FIM): 7 Sit to/from Stand: 7 Bed to/from Chair: 7 Weight Bearing Right Lower Extremity: Right Weight Bearing/Tolerated Left Lower Extremity: Left Weight Bearing/Tolerated Gait Training Gait (FIM): 7 Distance: 300' Gait Assistive Device: None Independent ambulation, no AD, brisk speed, no LOB or unsteadiness Treatments ambulation Assessment Current Status: Fair Progress Good stability and balance with ambulation. Patient is not independent with mobility. She will be discharged from PT services at this time. Patient encouraged to ambulate in the hallway several times a day on her own until she discharges and to continue to perform ankle pumps often. PT Short Term Goals Short Term Goals Time Frame: January 17, 2019 Transfers (B,C,W/C) (FIM): 7 Gait (FIM): 7 Gait Distance Comment: 400' Gait Assistive Device: None PT Plan Problem List Problem List: Activity Tolerance Treatment/Plan Treatment Plan: Discontinue PT Treatment Plan: Education, Functional Activity Nereida, Functional Strength, Gait, Safety, Therapeutic Exercise Treatment Duration: January 17, 2019 Frequency: 6 times per week Estimated Hrs Per Day: .25 hour per day (15-30') Patient and/or Family Agrees t: Yes Safety Risks/Education Patient Education: Gait Training, Correct Positioning, Safety Issues Teaching Recipient: Patient Teaching Methods: Demonstration, Discussion Response to Teaching: Reinforcement Needed Discharge Recommendations Plan DC Time/GCodes Time In: 1036 Time Out: 1046 Total Billed Treatment Time: 10 Total Billed Treatment 1 visit GT 10' MAKI DOMINGUEZ PT January 11, 2019 10:50
--- NOTE | 2019-01-11 11:47 | Progress Note-Hospitalist ---
Progress Note Progress Notes/Assess & Plan Date Seen 01/11/19 Time Seen by Provider: 11:42 Assessment & Plan The patient reports she has been able to walk in the [place]. 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 It was discussed with her that she will need to take aspirin daily. In addition her LDL is 170 and she will need to take a statin with a goal of less than 100. Physical exam: She is alert. Her speech is clear. Lungs are clear to auscultation. CV is regular without murmur. Abdomen is obese. Glass Bulb Machine Adjuster is 2+ and equal. Impression: Small infarct in the area of the right basal ganglia. Clinically complete resolution of symptoms times. 3.hyperlipidemia. 4.past history of Beltran's palsy with modest residua TANA SALVADOR MD January 11, 2019 11:47
[2019-01-11] MEDS ORDERED: ASPI-808 PO (11:50)
[2019-01-11] MEDS ORDERED: ATOR40TA PO (11:50)
--- NOTE | 2019-01-11 11:54 | Discharge Inst-Simple/Standard ---
Discharge Inst-Standard Patient Instructions/Follow Up Plan of Care/Instructions/FU: Make appointment with your provider in about 2 weeks. You will need to repeat your cholesterol profile in 2-3 months to confirm reaching a goal of LDL less than 100. Aspirin as directed on the discharge sequence Activity as Tolerated: Yes Goal: Reduction of LDL to less than 100 Maintaining function at present level. Discharge Diet: No Restrictions Planned Outpatient Orders/Ref. Pneu Vac Indicated: Yes TANA SALVADOR MD January 11, 2019 11:54
[2019-01-11 12:00] VITALS: BP 140/67
[2019-01-11 12:20] VITALS: BP 118/58
== END 2019-01-11 11:51 | disposition home or self-care (01) ==
LOC: EDUNIT# 18:12 → ER FS 18:14 → UNDOADMOB 20:20 → 4TH 20:20 → UNDODISOB 01-11 12:20
PROVIDERS: ADMIT Internal Medicine; ATTEND Internal Medicine
DX: I63.9 Cerebral infarction, unspecified (principal); E78.5 Hyperlipidemia, unspecified; Z88.1 Allergy status to other antibiotic agents; K50.90 Crohn's disease, unspecified, without complications; M62.81 Muscle weakness (generalized); R47.81 Slurred speech; R29.703 NIHSS score 3
CPT/HCPCS: 36415; 70450; 70544; 70547; 70551; 71045; 80053; 80061; 81000; 82962; 84443; 84484; 85025; 85610; 85730; 87088; 93005; 93041; G0378

== ENCOUNTER 2019-10-17 16:05 | Emergency (ER) | payer SELFPAY ==
[~2019-10-17] VITALS: Ht 154 cm; Wt 76.2 kg
[~2019-10-17 16:05] MED LIST changes: +ASPI-808 PO; +ATOR40TA PO
--- NOTE | 2019-10-17 16:18 | ED General ---
General Stated Complaint: TINGLING IN LEGS,SHOULDER/THROAT PAIN History of Present Illness Date Seen by Provider: Oct 17, 2019 Time Seen by Provider: 16:18 Initial Comments Patient presenting to emergency department for evaluation of multiple symptoms including generalized malaise fatigue left shoulder and anterior neck discomfort as well as bilateral below-knee tingling. Patient says that all the symptoms have been going on for 1 week straight. Looking through her chart it appears that she had a right basal ganglia infarct in November 2018 confirmed on MRI and she was started on cholesterol medicine and a full dose aspirin daily. She says she has been compliant with his medications and she has no new medical problems such as diabetes hypertension. She denies any prior cardiac risk stratification such as stress test or heart catheterization. She says she does not smoke cigarettes or have any immediate family members with cardiac disease at an early age. She says that the left shoulder and anterior neck pain is aching more than anything else and there is no pressure or tightness noted. The tingling on her bilateral legs is circumferential from the knee down and she says it comes and goes. She denies any permanent deficits from her stroke one year ago. 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 She appears anxious but is in no obvious distress with normal vital signs. Allergies and Home Medications Allergies Coded Allergies: cephalexin (Verified Allergy, Unknown, 01/10/19) sulfamethoxazole (Verified Allergy, Unknown, 01/10/19) trimethoprim (Verified Allergy, Unknown, 01/10/19) Home Medications Aspirin 325 Mg Tablet, 325 MG PO DAILY Prescribed by: TANA SALVADOR on 01/11/19 1150 Atorvastatin Calcium 40 Mg Tablet, 40 MG PO DAILY Prescribed by: TANA SALVADOR on 01/11/19 1150 Patient Home Medication List Home Medication List Reviewed: Yes Review of Systems Review of Systems Constitutional: malaise EENTM: no symptoms reported Respiratory: no symptoms reported Cardiovascular: no symptoms reported Gastrointestinal: no symptoms reported Genitourinary: no symptoms reported Musculoskeletal: joint pain Skin: no symptoms reported Psychiatric/Neurological: Paresthesia All Other Systems Reviewed Negative Unless Noted: Yes Past Lopzvdi-Eclmbr-Jxcimi Hx Patient Social History 2nd Hand Smoke Exposure: No Recent Foreign Travel: No Contact w/Someone Who Travel: No Recent Hopitalizations: No Seasonal Allergies Seasonal Allergies: No Past Medical History Surgeries: Yes (colostomy) Tonsillectomy Respiratory: No Cardiac: No Neurological: Yes (Beltran's Palsy) Genitourinary: No Gastrointestinal: Yes Crohns Disease Musculoskeletal: No Endocrine: No HEENT: No Cancer: No Psychosocial: No Integumentary: No Family Medical History Patient reports no known family medical history. Physical Exam Vital Signs Vital Signs - First Documented 10/17/19 16:11 Temp 36.3 Pulse 87 Resp 18 B/P (MAP) 170/65 (100) Pulse Ox 97 O2 Delivery Room Air Capillary Refill : Height, Weight, BMI Height: 5'1.00" Weight: 182lbs. 6.0oz. 82.678210eq; 34.5 BMI Method:Stated General Appearance: No Apparent Distress, WD/WN HEENT: PERRL/EOMI Neck: Supple Respiratory: Lungs Clear, No Respiratory Distress Cardiovascular: Regular Rate, Rhythm Gastrointestinal: Non Tender, Soft Back: Normal Inspection Extremity: Normal Capillary Refill Neurologic/Psychiatric: Alert, Oriented x3 Skin: Warm/Dry Progress/Results/Core Measures Suspected Sepsis SIRS Temperature: Pulse: Respiratory Rate: Laboratory Tests 10/17/19 16:30: White Blood Count 6.8 Blood Pressure / Mean: Laboratory Tests 10/17/19 16:30: Creatinine 0.87, Platelet Count 215, Total Bilirubin 0.5 Results/Orders Lab Results Laboratory Tests Test 10/17/19 16:30 10/17/19 17:09 Range/Units White Blood Count 6.8 4.3-11.0 10^3/uL Red Blood Count 4.68 4.35-5.85 10^6/uL Hemoglobin 14.6 11.5-16.0 G/DL Hematocrit 43 35-52 % Mean Corpuscular Volume 93 80-99 FL Mean Corpuscular Hemoglobin 31 25-34 PG Mean Corpuscular Hemoglobin Concent 34 32-36 G/DL Red Cell Distribution Width 12.3 10.0-14.5 % Platelet Count 215 130-400 10^3/uL Mean Platelet Volume 9.3 7.4-10.4 FL Neutrophils (%) (Auto) 62 42-75 % Lymphocytes (%) (Auto) 30 12-44 % Monocytes (%) (Auto) 6 0-12 % Eosinophils (%) (Auto) 1 0-10 % Basophils (%) (Auto) 0 0-10 % Neutrophils # (Auto) 4.2 1.8-7.8 X 10^3 Lymphocytes # (Auto) 2.1 1.0-4.0 X 10^3 Monocytes # (Auto) 0.4 0.0-1.0 X 10^3 Eosinophils # (Auto) 0.1 0.0-0.3 10^3/uL Basophils # (Auto) 0.0 0.0-0.1 10^3/uL Sodium Level 142 135-145 MMOL/L Potassium Level 4.4 3.6-5.0 MMOL/L Chloride Level 103 98-107 MMOL/L Carbon Dioxide Level 27 21-32 MMOL/L Anion Gap 12 5-14 MMOL/L Blood Urea Nitrogen 18 7-18 MG/DL Creatinine 0.87 0.60-1.30 MG/DL Estimat Glomerular Filtration Rate > 60 BUN/Creatinine Ratio 21 Glucose Level 112 H 70-105 MG/DL Calcium Level 10.0 8.5-10.1 MG/DL Corrected Calcium 9.6 8.5-10.1 MG/DL Magnesium Level 2.0 1.6-2.4 MG/DL Total Bilirubin 0.5 0.1-1.0 MG/DL Aspartate Amino Transf (AST/SGOT) 25 5-34 U/L Alanine Aminotransferase (ALT/SGPT) 35 0-55 U/L Alkaline Phosphatase 95 40-136 U/L Troponin I < 0.30 <0.30 NG/ML Pro-B-Type Natriuretic Peptide 51.6 <75.0 PG/ML Total Protein 7.7 6.4-8.2 GM/DL Albumin 4.5 3.2-4.5 GM/DL Lipase 27 8-78 U/L Urine Color YELLOW Urine Clarity CLOUDY Urine pH 5.5 5-9 Urine Specific Leander >1.030 1.016-1.022 Urine Protein NEGATIVE NEGATIVE Urine Glucose (UA) NEGATIVE NEGATIVE Urine Ketones TRACE H NEGATIVE Urine Nitrite NEGATIVE NEGATIVE Urine Bilirubin NEGATIVE NEGATIVE Urine Urobilinogen 0.2 < = 1.0 MG/DL Urine Leukocyte Esterase 1+ H NEGATIVE Urine RBC (Auto) 2+ H NEGATIVE Urine RBC 2-5 H /HPF Urine WBC 50-100 H /HPF Urine Squamous Epithelial Cells 0-2 /HPF Urine Crystals NONE /LPF Urine Bacteria TRACE /HPF Urine Casts NONE /LPF Urine Mucus MODERATE H /LPF Urine Culture Indicated YES My Orders Orders - EAN GAO DO Ct Head Wo (10/17/19 16:25) Comprehensive Metabolic Panel (10/17/19 16:25) Drug Screen Stat (Urine) (10/17/19 16:25) Lipase (10/17/19 16:25) Magnesium (10/17/19 16:25) Probnp Fs (10/17/19 16:25) Troponin I Fs (10/17/19 16:25) Ua Culture If Indicated (10/17/19 16:25) Chest 1 View Ap/Pa Only (10/17/19 16:25) Ekg Tracing (10/17/19 16:25) Cbc With Automated Diff (10/17/19 16:25) Urine Culture (10/17/19 17:09) Vital Signs/I&O 10/17/19 16:11 Temp 36.3 Pulse 87 Resp 18 B/P (MAP) 170/65 (100) Pulse Ox 97 O2 Delivery Room Air Capillary Refill : Progress Note : Progress Note I told patient that she is at risk for atypical symptoms for acute coronary syndrome given her comorbidities and age and that her heart scores equal to 4 prior to troponin testing. I told her I will not be able to completely rule out acute coronary syndrome or stroke in the emergency department and recommended transfer to another hospital where further testing could be done. Patient says that she cares for a daughter who had a stroke and is almost completely dependent on her and she is not willing to be transferred unless there is abnormal testing here in the emergency department. I explained all findings on workup to patient and told her that there is no signs of acute coronary syndrome but on her head CT there is findings of possible new lacunar infarcts and I recommended transfer to get MRI testing and further observation and treatment. Patient had many questions about the findings however she said that she is still paying off her hospital visit from last year and she does not want to get admitted the hospital again. I explained that she may need further treatment with additional antiplatelet medication such as Plavix and she verbalized understanding and accepted the risks of and d isability by not accepting my recommendations. Patient said she could follow with her primary care provider and I told her she would need outpatient MRI and possibly further stroke workup done as an outpatient but she could always come back to emergency Department sooner with worsening pain neurologic changes or other general concerns. Patient aware and agreeable with plan and verbalized understanding of the above instructions. Departure Impression Primary Impression: Urinary tract infection Additional Impressions: Left arm pain Lacunar infarction Disposition: HOME, SELF-CARE Condition: Stable Departure-Patient Inst. Patient Instructions: Urinary Tract Infection, Adult (DC) Scripts Ciprofloxacin HCl (Ciprofloxacin HCl) 500 Mg Tablet 500 MG PO BID, #6 TAB Prov: EAN GAO DO 10/17/19 EAN GAO DO Oct 17, 2019 16:18
[2019-10-17 16:40] LABS: WHITE BLOOD COUNT 6.8 10^3/uL (4.3-11.0)
[2019-10-17 16:41] LABS: BASOPHILS % (AUTO) 0 % (0-10); EOSINOPHILS # (AUTO) 0.1 10^3/uL (0.0-0.3); EOSINOPHILS % (AUTO) 1 % (0-10); HEMATOCRIT 43 % (35-52); HEMOGLOBIN 14.6 G/DL (11.5-16.0); LYMPHOCYTES # (AUTO) 2.1 X 10^3 (1.0-4.0); LYMPHOCYTES % (AUTO) 30 % (12-44); MEAN CORPUSCULAR HEMOGLOBIN 31 PG (25-34); MEAN CORPUSCULAR HGB CONC 34 G/DL (32-36); MEAN CORPUSCULAR VOLUME 93 FL (80-99); MEAN PLATELET VOLUME 9.3 FL (7.4-10.4); MONOCYTES # (AUTO) 0.4 X 10^3 (0.0-1.0); MONOCYTES % (AUTO) 6 % (0-12); NEUTROPHILS # (AUTO) 4.2 X 10^3 (1.8-7.8); NEUTROPHILS % (AUTO) 62 % (42-75); PLATELET COUNT 215 10^3/uL (130-400); RED CELL DISTRIBUTION WIDTH 12.3 % (10.0-14.5)
--- NOTE | 2019-10-17 16:49 | Diagnostic Imaging Report ---
PROCEDURE: CT head without contrast. TECHNIQUE: Multiple contiguous axial images were obtained through the brain without the use of intravenous contrast. Auto Exposure Controls were utilized during the CT exam to meet ALARA standards for radiation dose reduction. INDICATION: Headache. COMPARISON: MRI brain 01/10/2019. FINDINGS: Low-attenuation changes in the deep white matter of the frontal lobes, right greater than left, appear chronic but are new since 01/10/2019. Mild generalized cerebral and cerebellar parenchymal volume loss. No intracranial hemorrhage, mass effect, hydrocephalus or extra-axial fluid collections. Osseous structures are intact. The paranasal sinuses and mastoids are clear. IMPRESSION: Low-attenuation changes in the deep white matter of the frontal lobes have the appearance of chronic lacunar infarcts but are new since 01/10/2019. This would be further characterized with MRI. Dictated by: Dictated on workstation # [id number]
--- NOTE | 2019-10-17 16:55 | Diagnostic Imaging Report ---
EXAMINATION: Chest 1 view HISTORY: Tingling in the bilateral legs. Neck and shoulder pain. COMPARISON: 01/09/2019. FINDINGS: The lung volumes are normal. No focal consolidation is seen. No large pleural effusion or pneumothorax is seen. The cardiomediastinal silhouette is normal in size and contour. No acute osseous abnormality is seen. IMPRESSION: 1. No acute pleuroparenchymal process. Dictated by: Dictated on workstation # [id number]
[2019-10-17 17:12] LABS: BUN/CREATININE RATIO 21; CARBON DIOXIDE 27 MMOL/L (21-32); CHLORIDE 103 MMOL/L (98-107); CREATININE SERUM 0.87 MG/DL (0.60-1.30); GFR ESTIMATED > 60; POTASSIUM 4.4 MMOL/L (3.6-5.0); SODIUM 142 MMOL/L (135-145)
[2019-10-17 17:13] LABS: ALANINE AMINOTRANSFERASE 35 U/L (0-55); ALBUMIN 4.5 GM/DL (3.2-4.5); ALKALINE PHOSPHATASE 95 U/L (40-136); BILIRUBIN,TOTAL 0.5 MG/DL (0.1-1.0); GLUCOSE 112 MG/DL (70-105); LIPASE 27 U/L (8-78); TOTAL PROTEIN 7.7 GM/DL (6.4-8.2)
[2019-10-17 17:32] LABS: COLOR,URINE YELLOW
[2019-10-17 17:33] LABS: BILIRUBIN,URINE NEGATIVE (NEGATIVE); CLARITY,URINE CLOUDY; GLUCOSE, URINE (UA) NEGATIVE (NEGATIVE); KETONES,URINE TRACE (NEGATIVE); LEUKOCYTE ESTERASE ,URINE 1+ (NEGATIVE); NITRITE,URINE NEGATIVE (NEGATIVE); PH,URINE 5.5 (5-9); PROTEIN,URINE NEGATIVE (NEGATIVE); WBC,URINE 50-100 /HPF
[2019-10-17 17:34] LABS: BACTERIA,URINE TRACE /HPF; SQUAMOUS EPITHELIAL CELL,UR 0-2 /HPF
[2019-10-17] MEDS ORDERED: CIPR500T4 PO (17:42)
[2019-10-17 17:44] VITALS: BP 136/61
[2019-10-17 17:45] LABS: AMPHETAMINE SCREEN, URINE NEGATIVE (NEGATIVE); BARBITURATE SCREEN URINE NEGATIVE (NEGATIVE); BENZODIAZEPINES SCREEN URINE NEGATIVE (NEGATIVE); CANNABINOID SCREEN, URINE NEGATIVE (NEGATIVE); COCAINE SCREEN URINE NEGATIVE (NEGATIVE); METHADONE STAT NEGATIVE (NEGATIVE); METHAMPHETAMINE SCREEN URINE S NEGATIVE (NEGATIVE); OPIATE SCREEN URINE NEGATIVE (NEGATIVE); OXYCODONE STAT NEGATIVE (NEGATIVE); PROPOXYPHENE STAT NEGATIVE (NEGATIVE); TRICYCLIC ANTIDEPRESSANTS SCRE NEGATIVE (NEGATIVE)
== END 2019-10-17 17:45 | disposition home or self-care (01) ==
LOC: EDUNIT# 16:05 → ER FS 16:06
DX: I63.81 Other cerebral infarction due to occlusion or stenosis of small artery (principal); N39.0 Urinary tract infection, site not specified; M79.602 Pain in left arm; Z79.82 Long term (current) use of aspirin; Z88.1 Allergy status to other antibiotic agents; Z88.2 Allergy status to sulfonamides
CPT/HCPCS: 36415; 70450; 71045; 80053; 80306; 81000; 83690; 83735; 83880; 84484; 85025; 87088; 93005

== ENCOUNTER 2023-04-08 05:34 | Outpatient (CLI) | payer MEDICARE ==
[~2023-04-08] VITALS: Ht 154.9 cm; Wt 84.3 kg
[~2023-04-08 05:34] MED LIST changes: +CIPR500T5 PO
[2023-04-08] MEDS ORDERED: ZINC50TA11 PO (08:38)
[2023-04-08] MEDS ORDERED: CHOL200078 PO (08:38)
[2023-04-08] MEDS ORDERED: MULT-1136 PO (08:38)
== END 2023-04-08 08:49 | disposition home or self-care (01) ==
LOC: PREOP 05:34
PROVIDERS: ATTEND Surgery
DX: Z01.818 Encounter for other preprocedural examination (principal)

== ENCOUNTER 2023-04-13 09:15 | Day surgery (SDC) | payer MEDICARE ==
[~2023-04-13] VITALS: Ht 155 cm; Wt 84.3 kg
[~2023-04-13 09:15] MED LIST changes: +CHOL200078 PO; +MULT-1136 PO; +ZINC50TA11 PO
[2023-04-13] MEDS ORDERED: LACTATED RINGERS 1,000 ML 1,000 ML IV STA (09:37)
--- NOTE | 2023-04-13 09:41 | Progress Note-Pre Operative ---
Pre-Operative Progress Note Date of Available H&P: Mar 31, 2023 Date H&P Reviewed: Apr 13, 2023 Time H&P Reviewed: 09:40 History & Physical: H&P Reviewed, Patient Examed, No changes noted Pre-Operative Diagnosis: GERD, Screening RAVINDER HILL DO Apr 13, 2023 09:41
[2023-04-13] MEDS ORDERED: HURRICAINE EXT TUBE (BENZOCAINE) XX PRN (09:45)
[2023-04-13 09:49] VITALS: BP 137/72
[2023-04-13 11:21] VITALS: BP 127/62
[2023-04-13 11:26] VITALS: BP 156/68
--- NOTE | 2023-04-13 11:27 | Progress Note-Post Operative ---
Post-Operative Progess Note Surgeon (s)/Iron Caster (s) Surgeon RAVINDER HILL DO Iron Caster: Mark Roberto, MSIII Pre-Operative Diagnosis GERD, Screening Post-Operative Diagnosis Gastritis Hiatal hernia Esophagitis Colitis Polyp Procedure & Operative Findings Date of Procedure 04/13/23 Procedure Performed/Findings EGD with bx Colonoscopy with snare Polypectomy PROCEDURE NOTE: After informed consent was obtained, the patient was brought to the endoscopy suite, placed in bed in left lateral decubitus position. She was administered IV sedation by the WARDROBE SPECIALTY WORKER who then monitored vitals the entire time, heart rate, blood pressure and pulse ox and the scope was inserted down the mouth through the esophagus into the stomach. On the way down, noted some mild esophagitis, took a picture, pushed into the stomach, pushed past the antrum into the duodenum. Duodenum looked good. Pulled back, noted some gastritis and did a biopsy of the antrum. Then retroflexed the scope, saw a hiatal h ernia, took a picture of this and then pulled the scope into the GE junction, took another picture of the hiatal hernia and then did a biopsy of the GE junction. Pushed the scope back into the stomach, suctioned all the air out of the stomach. At this point pulled the scope up the esophagus and out the mouth. Switched camera, switched gloves, went down below and started the colonoscopy. First tried to start by looking at the rectum, small opening and doesn't go more than 3-5cm up. Switched, now to doing the colonoscopy through ostomy. Pushed in to about 110 cm and pushed into the cecum, took a picture of appendiceal orifice and noted the ileocecal valve. All the way from ostomy to cecum there was colitis and ulcers; took pictures. Then slowly withdrew the scope insufflating to look circumferentially at the jara starting in the cecum, up the ascending colon to the hepatic flexure, then down the transverse colon, splenic flexure and into the descending colon. I elected to do random biopsies of the colitis; 3 were done. Approximately, 20cm from the ostomy I found a polyp and elected to remove it with a snare. Finally pulled the scope out of the ostomy. The patient tolerated the procedure and she recovered in the endoscopy suite. Recommended for repeat colonoscopy in 5 years Anesthesia Type IV sedation by WARDROBE SPECIALTY WORKER Estimated Blood Loss Estimated blood loss (mL): scant Specimens/Packing Specimens Removed Antrum body of stomach bx GE jxn bx random colon biopsies polyp appx 20cm from ostomy RAVINDER HILL DO Apr 13, 2023 11:27
--- NOTE | 2023-04-13 11:28 | Endoscopy Discharge Instruct ---
Endo Procedure/Findings Findings 1.: Gastritis 2.: Hiatal Hernia 3.: Colitis 4.: Polyp Discharge Instructions - Activity: You might feel a little sleepy until tomorrow. This is due to the medicine you received to relax you. Until tomorrow, you should: NOT drive a car, operate machinery or power tools. NOT drink any alcoholic beverages. NOT make any important decisions or sign importortant papers. Do not return to work until tomorrow, unless otherwise instructed. Resume previous activities tomorrow. Diet: Start by taking liquids. If you tolerate liquids, advance to solid food. 1.: EGD in 3 years 2.: Colonscopy in 5 years Notify Physician - If you experience excessive bleeding, unusual abdominal pain, fever, or chest pain, contact your doctor immediately. Follow-Up: Other Follow up in my office in one week RAVINDER HILL DO Apr 13, 2023 11:28
[2023-04-13 11:30] VITALS: BP 154/67
[2023-04-13 12:25] VITALS: BP 143/66
--- NOTE | 2023-04-13 12:32 | Anesthesia-General Post-Op ---
MAC Patient Condition Mental Status/LOC: Same as Preop Cardiovascular: Satisfactory Nausea/Vomiting: Absent Respiratory: Satisfactory Pain: Controlled Complications: Absent Post Op Complications Complications None Follow Up Care/Instructions Patient Instructions None needed. Anesthesiology Discharge Order Discharge Order Patient is doing well, no complaints, stable vital signs, no apparent adverse anesthesia problems. No complications reported per nursing. BURTON LEE CRNA Apr 13, 2023 12:32
== END 2023-04-13 12:25 | disposition home or self-care (01) ==
LOC: ENDO 09:15
PROVIDERS: ATTEND Surgery
DX: Z12.11 Encounter for screening for malignant neoplasm of colon (principal); K21.00 Gastro-esophageal reflux disease with esophagitis, without bleeding; K51.40 Inflammatory polyps of colon without complications; K52.9 Noninfective gastroenteritis and colitis, unspecified; K44.9 Diaphragmatic hernia without obstruction or gangrene; Z93.3 Colostomy status